=== PATIENT | male | born 1945 | race Asian ===

== ENCOUNTER 2018-05-23 08:37 | Outpatient (CLI) | payer OTHER ==
[~2018-05-23 08:37] MED LIST: ASA LO-DOSE81 MG PO
[2018-05-23 09:00] LABS: PLATELET COUNT 170 K/uL (142-355)
[2018-05-23 09:12] LABS: POTASSIUM 3.8 mmol/L (3.6-5.2)
== END 2018-05-23 20:14 | disposition home or self-care (01) ==
LOC: LABW 08:37
PROVIDERS: Specialist
DX: Z79.899 Other long term (current) drug therapy (principal); Z51.81 Encounter for therapeutic drug level monitoring; G30.1 Alzheimer's disease with late onset; F02.80 Dementia in other diseases classified elsewhere, unspecified severity, without behavioral disturbance, psychotic disturbance, mood disturbance, and anxiety; D64.89 Other specified anemias
CPT/HCPCS: 36415; 80053; 82607; 83090; 85027; 85651; 86039; 86592

== ENCOUNTER 2018-05-30 09:00 | Outpatient (CLI) | payer OTHER | END 2018-05-30 23:01 | disposition home or self-care (01) | LOC: RESP 09:00 | DX: F03.90 Unspecified dementia, unspecified severity, without behavioral disturbance, psychotic disturbance, mood disturbance, and anxiety (principal) ==

== ENCOUNTER 2018-09-19 10:07 | Outpatient (CLI) | payer OTHER ==
[2018-09-19 10:35] LABS: PLATELET COUNT 190 K/uL (142-355)
[2018-09-19 11:17] LABS: POTASSIUM 3.7 mmol/L (3.6-5.2)
== END 2018-09-19 19:22 | disposition home or self-care (01) ==
LOC: LABW 10:07
PROVIDERS: Physician Assistant
DX: G31.09 Other frontotemporal neurocognitive disorder (principal); F02.80 Dementia in other diseases classified elsewhere, unspecified severity, without behavioral disturbance, psychotic disturbance, mood disturbance, and anxiety; L85.3 Xerosis cutis; E55.9 Vitamin D deficiency, unspecified; Z79.899 Other long term (current) drug therapy
CPT/HCPCS: 36415; 80053; 82306; 82607; 83036; 84153; 84439; 84443; 85027

== ENCOUNTER 2019-08-12 08:32 | Outpatient (CLI) | payer OTHER ==
[2019-08-12 09:02] LABS: PLATELET COUNT 185 K/uL (142-355)
[2019-08-12 09:22] LABS: POTASSIUM 4.1 mmol/L (3.6-5.2)
== END 2019-08-12 23:59 | disposition home or self-care (01) ==
LOC: LABW 08:32
PROVIDERS: Internal Medicine
DX: Z00.00 Encounter for general adult medical examination without abnormal findings (principal); Z12.5 Encounter for screening for malignant neoplasm of prostate; Z79.899 Other long term (current) drug therapy; N40.0 Benign prostatic hyperplasia without lower urinary tract symptoms
CPT/HCPCS: 36415; 80053; 80061; 84153; 84443; 85027

== ENCOUNTER 2021-09-04 06:48 | Emergency (ER) | payer OTHER ==
[~2021-09-04] VITALS: Ht 182.9 cm; Wt 76.2 kg
[2021-09-04 06:59] VITALS: TEMP 98.2
[2021-09-04 07:23] LABS: PLATELET COUNT 161 K/uL (142-355)
[2021-09-04 07:31] LABS: POTASSIUM 3.9 mmol/L (3.6-5.2)
[2021-09-04] MEDS ORDERED: CARV3.12 PO (07:52)
[2021-09-04 08:30] VITALS: BP 113/74
== END 2021-09-04 08:52 | disposition home or self-care (01) ==
LOC: ED 06:48
PROVIDERS: Family Medicine
DX: R56.9 Unspecified convulsions (principal)
CPT/HCPCS: 80053; 80320; 85027; 93005; 99283

== ENCOUNTER 2022-03-04 18:07 | Emergency (ER) | payer OTHER ==
[~2022-03-04] VITALS: Ht 182.9 cm; Wt 76.2 kg
[2022-03-04 18:07] VITALS: TEMP 98.1
[~2022-03-04 18:07] MED LIST changes: +CARV3.12 PO
[2022-03-04 19:19] LABS: PLATELET COUNT 289 K/uL (142-355)
[2022-03-04 19:26] LABS: POTASSIUM 3.1 mmol/L (3.6-5.2)
[2022-03-04 20:41] VITALS: BP 106/68
== END 2022-03-04 20:55 | disposition short-term general hospital (02) ==
LOC: ED 18:07
PROVIDERS: Hospitalist
PROC: 0T9B70Z Drainage of Bladder with Drainage Device, Via Natural or Artificial Opening (ICD-10-PCS; principal; 2022-03-04)
DX: E86.0 Dehydration (principal); N17.8 Other acute kidney failure; E87.0 Hyperosmolality and hypernatremia; R77.8 Other specified abnormalities of plasma proteins; Z11.52 Encounter for screening for COVID-19
CPT/HCPCS: 36415; 36600; 51702; 80053; 80320; 81000; 82272; 82805; 83690; 84484; 85007; 85027; 87635; 96360; 96365; 96366; 99284; J0696; U0003